=== PATIENT | female | born 1940 | race Caucasian/White ===

== ENCOUNTER 2017-08-28 13:45 | Outpatient (CLI) | payer OTHER ==
[~2017-08-28 13:45] MED LIST: CELEBREX100 MG PO; DIOVAN40 MG; FORTAMET1000 MG; JANUMET 50-1,01 EACH; LIPITOR20 MG; METFORMIN HCL500 MG PO; NORVASC5 MG PO; OSEL75CA PO; TOPROL XL25 MG; [UNRECOGNIZED DRUG - OTHER]
== END 2017-08-28 14:01 | disposition home or self-care (01) ==
LOC: MRI 13:45
DX: I61.1 Nontraumatic intracerebral hemorrhage in hemisphere, cortical (principal); I63.039 Cerebral infarction due to thrombosis of unspecified carotid artery
CPT/HCPCS: 70551

== ENCOUNTER 2017-11-21 18:04 | Emergency (ER) | payer OTHER ==
[~2017-11-21] VITALS: Ht 165.1 cm; Wt 73.9 kg
== END 2017-11-21 20:00 | disposition home or self-care (01) ==
LOC: ER 18:04
DX: S61.224A Laceration with foreign body of right ring finger without damage to nail, initial encounter (principal); W26.0XXA Contact with knife, initial encounter; Y93.89 Activity, other specified; Y92.89 Other specified places as the place of occurrence of the external cause; Y99.8 Other external cause status

== ENCOUNTER → 2017-12-03 | Emergency (ER) | payer OTHER ==
[~2017-12-03] VITALS: Ht 165.1 cm; Wt 73.5 kg
== END | disposition home or self-care (01) ==
LOC: ER 11:01
DX: M25.512 Pain in left shoulder (principal); Z48.02 Encounter for removal of sutures

== ENCOUNTER 2018-11-17 10:22 | Emergency (ER) | payer OTHER ==
[~2018-11-17] VITALS: Ht 165.1 cm; Wt 73.0 kg
== END 2018-11-17 15:40 | disposition home or self-care (01) ==
LOC: ER 10:22
DX: S01.82XA Laceration with foreign body of other part of head, initial encounter (principal); S01.02XA Laceration with foreign body of scalp, initial encounter; W45.8XXA Other foreign body or object entering through skin, initial encounter; Y93.89 Activity, other specified; Y92.018 Other place in single-family (private) house as the place of occurrence of the external cause; Y99.8 Other external cause status

== ENCOUNTER → 2019-01-03 | Outpatient (CLI) | payer OTHER | END | disposition home or self-care (01) | LOC: SONOGRAMA 13:53 | DX: E04.1 Nontoxic single thyroid nodule (principal) ==

== ENCOUNTER 2019-02-10 16:35 | Emergency (ER) | payer OTHER ==
[~2019-02-10] VITALS: Ht 165.1 cm; Wt 71.7 kg
== END 2019-02-11 00:27 | disposition home or self-care (01) ==
LOC: ER 16:35
DX: R59.0 Localized enlarged lymph nodes (principal)

== ENCOUNTER 2019-04-26 10:25 | Emergency (ER) | payer OTHER ==
[~2019-04-26] VITALS: Ht 165.1 cm; Wt 72.1 kg
[2019-04-26] MEDS ORDERED: NORVASC10 MG (11:08)
[2019-04-26] MEDS ORDERED: COZAAR50 MG (11:10)
[2019-04-26] MEDS ORDERED: VICTOZA 3-0.6 MG/0.1 (11:17)
== END 2019-04-26 21:00 | disposition home or self-care (01) ==
LOC: ER 10:25
DX: R10.31 Right lower quadrant pain (principal); M54.5 Low back pain; M54.6 Pain in thoracic spine

== ENCOUNTER 2021-01-09 11:43 | Outpatient (CLI) | payer OTHER ==
[~2021-01-09 11:43] MED LIST changes: +COZAAR50 MG; +NORVASC10 MG; +VICTOZA 3-0.6 MG/0.1
== END 2021-01-09 12:02 | disposition home or self-care (01) ==
LOC: RAD 11:43
PROVIDERS: ATTEND Obstetrics & Gynecology Gynecology
DX: M25.541 Pain in joints of right hand (principal); M54.5 Low back pain
CPT/HCPCS: 72148

== ENCOUNTER → 2021-01-14 09:57 | Outpatient (CLI) | payer OTHER | END | disposition home or self-care (01) | LOC: LAB 09:57 | PROVIDERS: ATTEND Radiology Diagnostic Radiology | DX: R10.32 Left lower quadrant pain (principal); E11.21 Type 2 diabetes mellitus with diabetic nephropathy; E55.9 Vitamin D deficiency, unspecified; K92.1 Melena; Z51.81 Encounter for therapeutic drug level monitoring ==

== ENCOUNTER → 2021-01-14 | Outpatient (CLI) | payer OTHER | END | disposition home or self-care (01) | LOC: TOM 10:54 | PROVIDERS: ATTEND Internal Medicine Hepatology | DX: R10.32 Left lower quadrant pain (principal) | CPT/HCPCS: 74177; Q9965 ==

== ENCOUNTER 2022-09-22 14:17 | Outpatient (CLI) | payer OTHER | END 2022-09-22 14:23 | disposition home or self-care (01) | LOC: SONOGRAMA 14:17 | PROVIDERS: ATTEND Family Medicine | DX: N28.1 Cyst of kidney, acquired (principal); R93.5 Abnormal findings on diagnostic imaging of other abdominal regions, including retroperitoneum ==

== ENCOUNTER 2022-10-28 08:04 | Outpatient (CLI) | payer OTHER | END 2022-10-28 08:13 | disposition home or self-care (01) | LOC: LAB 08:04 | PROVIDERS: ATTEND Internal Medicine | DX: N13.30 Unspecified hydronephrosis (principal); N28.1 Cyst of kidney, acquired; R93.5 Abnormal findings on diagnostic imaging of other abdominal regions, including retroperitoneum ==

== ENCOUNTER 2022-12-24 14:27 | Outpatient (CLI) | payer OTHER | END 2022-12-24 23:00 | disposition home or self-care (01) | LOC: LAB 14:27 | DX: N28.1 Cyst of kidney, acquired (principal) ==

== ENCOUNTER 2023-01-01 08:36 | Outpatient (CLI) | payer OTHER | END 2023-01-01 08:50 | disposition home or self-care (01) | LOC: TOM 08:36 | PROVIDERS: ATTEND Family Medicine | DX: N28.1 Cyst of kidney, acquired (principal); R93.5 Abnormal findings on diagnostic imaging of other abdominal regions, including retroperitoneum; E03.9 Hypothyroidism, unspecified ==

== ENCOUNTER 2023-01-20 15:04 | Outpatient (CLI) | payer OTHER | END 2023-01-20 15:14 | disposition home or self-care (01) | LOC: RAD 15:04 | PROVIDERS: ATTEND Internal Medicine | DX: M79.671 Pain in right foot (principal) ==

== ENCOUNTER 2023-05-18 10:50 | Emergency (ER) | payer OTHER ==
[~2023-05-18] VITALS: Ht 167.6 cm; Wt 68.0 kg
[2023-05-18] MEDS ORDERED: XIGDUO XR 5 MG1 EAC1 PO (11:12)
[2023-05-18] MEDS ORDERED: ROSUVASTATIN CA40 MG PO (11:13)
[2023-05-18] MEDS ORDERED: GLIMEPIRIDE2 M1 PO (11:14)
[2023-05-18 11:41] LABS: HEMATOCRIT 37.9 % (36.0-45.00); HEMOGLOBIN 12.7 g/dL (12.0-15.00); MEAN CORPUSCULAR HEMOGLOBIN 28.9 pg (27.00-32.0); MEAN CORPUSCULAR HGB CONC 33.6 g/dl (32.0-36.0); PLATELET COUNT 157 K/uL (150-450); RED BLOOD COUNT 4.41 M/uL (4.00-6.00); RED CELL DISTRIBUTION WIDTH 14.5 % (11.5-14.5)
[2023-05-18] MEDS ORDERED: ZITHROMAX500 MG PO (14:13)
[2023-05-18] MEDS ORDERED: TUSNEL LIQUID178 ML PO (14:13)
== END 2023-05-18 14:19 | disposition left against medical advice (07) ==
LOC: ER 10:50
PROVIDERS: General Practice
DX: U07.1 COVID-19 (principal); B34.8 Other viral infections of unspecified site

== ENCOUNTER 2023-10-03 20:41 | Emergency (ER) | payer OTHER ==
[~2023-10-03] VITALS: Ht 167.6 cm; Wt 77.1 kg
[~2023-10-03 20:41] MED LIST changes: +GLIMEPIRIDE2 M1 PO; +ROSUVASTATIN CA40 MG PO; +TUSNEL LIQUID178 ML PO; +XIGDUO XR 5 MG1 EAC1 PO; +ZITHROMAX500 MG PO
[2023-10-03] MEDS ORDERED: KETOROLAC TROMETHAMINE 30 MG VIAL IM ONE (21:30)
== END 2023-10-03 22:55 | disposition home or self-care (01) ==
LOC: ER 20:42
DX: S42.391A Other fracture of shaft of right humerus, initial encounter for closed fracture (principal); W19.XXXA Unspecified fall, initial encounter; Y93.89 Activity, other specified; Y92.091 Bathroom in other non-institutional residence as the place of occurrence of the external cause; Y99.8 Other external cause status; Z88.0 Allergy status to penicillin; Z88.1 Allergy status to other antibiotic agents; Z88.6 Allergy status to analgesic agent; Z88.8 Allergy status to other drugs, medicaments and biological substances
CPT/HCPCS: 73030; 96372; 99283; J1885

== ENCOUNTER 2023-10-05 16:02 | Outpatient (CLI) | payer OTHER | END 2023-10-05 16:07 | disposition home or self-care (01) | LOC: TOM 16:02 | PROVIDERS: ATTEND Orthopaedic Surgery | DX: S42.251A Displaced fracture of greater tuberosity of right humerus, initial encounter for closed fracture (principal) ==

== ENCOUNTER 2024-02-04 15:19 | Outpatient (CLI) | payer OTHER | END 2024-02-04 15:28 | disposition home or self-care (01) | LOC: RAD 15:19 | PROVIDERS: ATTEND Orthopaedic Surgery | DX: S42.224D 2-part nondisplaced fracture of surgical neck of right humerus, subsequent encounter for fracture with routine healing (principal) ==

== ENCOUNTER 2024-02-05 09:53 | Outpatient (CLI) | payer OTHER | END 2024-02-05 10:00 | disposition home or self-care (01) | LOC: NUCLEAR 09:53 | PROVIDERS: ATTEND Orthopaedic Surgery | DX: M81.0 Age-related osteoporosis without current pathological fracture (principal) ==

== ENCOUNTER → 2024-07-05 | Emergency (ER) | payer OTHER ==
[~2024-07-05] VITALS: Ht 167.6 cm; Wt 67.6 kg
[~2024-07-05] MED LIST changes: +BUDESONIDE 0.5 MG/2 ML AMPUL.NEB IH ONE; +CETIRIZINE HCL 5 MG/5 ML ML PO ONE; +IPRATROPIUM BROMIDE 0.5 MG/2.5 ML AMPUL.NEB IH SCH; +LEVALBUTEROL HCL 1.25 MG/3 ML SOLUTION IH ONE; +MELOXICAM15 MG PO; +NORVASC5 MG
[2024-07-05 14:52] LABS: HEMATOCRIT 42.8 % (36.0-45.00); HEMOGLOBIN 14.3 g/dL (12.0-15.00); MEAN CELL VOLUME 89.2 fL (80.00-100.00); MEAN CORPUSCULAR HEMOGLOBIN 29.9 pg (27.00-32.0); MEAN CORPUSCULAR HGB CONC 33.5 g/dl (32.0-36.0); PLATELET COUNT 178 K/uL (150-450); RED CELL DISTRIBUTION WIDTH 13.5 % (11.5-14.5)
[2024-07-05 15:17] LABS: CALCIUM 9.4 mg/dL (8.5-10.1); CREATININE SERUM 1.04 mg/dL (0.55-1.02); GFR 50.24; POTASSIUM 4.67 mEq/L (3.5-5.1)
== END | disposition left against medical advice (07) ==
LOC: ER 11:05
PROVIDERS: General Practice
DX: R05.9 Cough, unspecified (principal); Z20.822 Contact with and (suspected) exposure to COVID-19; I10 Essential (primary) hypertension; E11.9 Type 2 diabetes mellitus without complications; Z79.84 Long term (current) use of oral hypoglycemic drugs; Z88.0 Allergy status to penicillin; Z88.1 Allergy status to other antibiotic agents; Z88.6 Allergy status to analgesic agent; Z88.8 Allergy status to other drugs, medicaments and biological substances

== ENCOUNTER 2024-07-06 23:17 | Emergency (ER) | payer OTHER ==
[~2024-07-06] VITALS: Ht 167.6 cm; Wt 68.0 kg
[~2024-07-06 23:17] MED LIST changes: -BUDESONIDE 0.5 MG/2 ML AMPUL.NEB IH ONE; -CETIRIZINE HCL 5 MG/5 ML ML PO ONE; -IPRATROPIUM BROMIDE 0.5 MG/2.5 ML AMPUL.NEB IH SCH; -LEVALBUTEROL HCL 1.25 MG/3 ML SOLUTION IH ONE; -MELOXICAM15 MG PO
[2024-07-07] MEDS ORDERED: KETOROLAC TROMETHAMINE 60 MG VIAL IM STA (03:36)
[2024-07-07] MEDS ORDERED: GUAIFENESIN 200 MG/10 ML BLIST.PACK PO STA (03:36)
[2024-07-07] MEDS ORDERED: MELOXICAM15 MG PO (04:14)
== END 2024-07-07 04:31 ==
LOC: ER 23:19
DX: R07.81 Pleurodynia (principal); E11.9 Type 2 diabetes mellitus without complications; Z79.84 Long term (current) use of oral hypoglycemic drugs; I10 Essential (primary) hypertension; Z88.0 Allergy status to penicillin; Z88.8 Allergy status to other drugs, medicaments and biological substances
CPT/HCPCS: 71046; 96372; 99283; J1885

== ENCOUNTER 2024-09-16 10:49 | Outpatient (CLI) | payer OTHER ==
[~2024-09-16 10:49] MED LIST changes: +MELOXICAM15 MG PO
== END 2024-09-16 10:57 | disposition home or self-care (01) ==
LOC: RAD 10:49
PROVIDERS: ATTEND Orthopaedic Surgery
DX: M25.562 Pain in left knee (principal); M17.12 Unilateral primary osteoarthritis, left knee; M79.641 Pain in right hand; M65.341 Trigger finger, right ring finger

== ENCOUNTER 2024-12-03 09:04 | Emergency (ER) | payer OTHER ==
[~2024-12-03] VITALS: Ht 167.6 cm; Wt 66.2 kg
[2024-12-03] MEDS ORDERED: TRIJARDY XR 121 EACH PO (10:40)
[2024-12-03 12:14] LABS: BASO % 0.2 % (0.1-1.2); EOS # 0.09 (0.04-0.54); EOS % 0.7 % (0.7-7.0); HEMATOCRIT 44.2 % (34.1-44.9); LYMPH # 0.94 (1.18-3.74); LYMPH % 7.4 % (19.3-53.1); MEAN CORPUSCULAR HEMOGLOBIN 29.9 pg (25.6-32.2); MONO # 0.89 (0.24-0.82); NEUT # 10.69 (1.56-6.13); NEUT % 84.4 % (34.0-71.1); PLATELET COUNT 219 K/uL (163-369); RED BLOOD COUNT 5.02 M/uL (3.93-5.22); RED CELL DISTRIBUTION WIDTH 13.8 % (11.6-14.4)
[2024-12-03 12:39] LABS: CALCIUM 9.2 mg/dL (8.5-10.1); CREATININE SERUM 1.1 mg/dL (0.55-1.02); GFR 47.09; POTASSIUM 3.98 mEq/L (3.5-5.1)
[2024-12-03 13:16] LABS: PH,URINE 5.5 (5.0-8.0); URINE APPEARANCE Clear; URINE BILIRRUBIN Negative (NEGATIVE); URINE BLOOD Trace; URINE COLOR Yellow; URINE KETONE Negative (NEGATIVE); URINE LEUKOCYTE Trace; URINE NITRATE Positive; URINE PROTEIN Negative (NEGATIVE); URINE UROBILINOGEN 0.2 E.U./dl
[2024-12-03 13:20] LABS: URINE EPITHELIAL CELLS 6.8 uL (0.0-38.8); URINE RBC 6.1 uL (0.0-20.8); URINE WBC 176.5 uL (0.0-23.2)
[2024-12-03 13:28] LABS: URINE BACTERIA > 9821.5 uL (0.0-1933); URINE CAST 0.14 uL (0.0-1.40); URINE GLUCOSE >=1000 MG/DL (NEGATIVE)
== END 2024-12-03 14:01 | disposition home or self-care (01) ==
LOC: ER 09:18
PROVIDERS: General Practice
DX: J04.0 Acute laryngitis (principal); N39.0 Urinary tract infection, site not specified; E11.9 Type 2 diabetes mellitus without complications; Z79.84 Long term (current) use of oral hypoglycemic drugs; Z88.0 Allergy status to penicillin; Z88.1 Allergy status to other antibiotic agents; Z88.6 Allergy status to analgesic agent; Z88.8 Allergy status to other drugs, medicaments and biological substances

== ENCOUNTER → 2024-12-06 | Emergency (ER) | payer OTHER ==
[~2024-12-06] VITALS: Ht 167.6 cm; Wt 67.1 kg
[~2024-12-06] MED LIST changes: +TRIJARDY XR 121 EACH PO
[2024-12-06 11:17] LABS: BASO % 0.5 % (0.1-1.2); EOS # 0.26 (0.04-0.54); EOS % 3.3 % (0.7-7.0); HEMATOCRIT 40.7 % (34.1-44.9); HEMOGLOBIN 13.5 g/dL (11.2-15.7); LYMPH % 12.8 % (19.3-53.1); MEAN CORPUSCULAR HEMOGLOBIN 29.3 pg (25.6-32.2); MONO # 0.71 (0.24-0.82); MONO % 9.1 % (4.7-12.5); NEUT % 73.3 % (34.0-71.1); PLATELET COUNT 240 K/uL (163-369); RED BLOOD COUNT 4.61 M/uL (3.93-5.22); RED CELL DISTRIBUTION WIDTH 13.3 % (11.6-14.4)
[2024-12-06 11:31] LABS: CALCIUM 9.3 mg/dL (8.5-10.1); CREATININE SERUM 1.02 mg/dL (0.55-1.02); GFR 51.38; POTASSIUM 4.47 mEq/L (3.5-5.1)
[2024-12-06 12:13] LABS: COVID-19 AG NEGATIVE (NEGATIVE)
[2024-12-06 12:17] LABS: INFLUENZA A AG NEGATIVE (NEGATIVE)
== END | disposition left against medical advice (07) ==
LOC: ER 09:19
PROVIDERS: General Practice
DX: J00 Acute nasopharyngitis [common cold] (principal); Z88.0 Allergy status to penicillin; Z88.8 Allergy status to other drugs, medicaments and biological substances; Z20.822 Contact with and (suspected) exposure to COVID-19

== ENCOUNTER 2024-12-08 11:17 | Emergency (ER) | payer OTHER ==
[~2024-12-08] VITALS: Ht 167.6 cm; Wt 67.1 kg
[2024-12-08] MEDS ORDERED: GUAIFENESIN 200 MG/10 ML BLIST.PACK PO ONE ×2 (12:15→12:40)
[2024-12-08] MEDS ORDERED: IPRATROPIUM BROMIDE 0.5 MG/2.5 ML AMPUL.NEB IH SCH (12:15)
[2024-12-08 13:11] LABS: BASO % 0.7 % (0.1-1.2); EOS # 0.24 (0.04-0.54); EOS % 3.3 % (0.7-7.0); HEMATOCRIT 41.2 % (34.1-44.9); HEMOGLOBIN 13.5 g/dL (11.2-15.7); LYMPH % 15.3 % (19.3-53.1); MEAN CORPUSCULAR HEMOGLOBIN 29.1 pg (25.6-32.2); MONO # 0.58 (0.24-0.82); MONO % 8.1 % (4.7-12.5); NEUT # 5.14 (1.56-6.13); NEUT % 71.3 % (34.0-71.1); PLATELET COUNT 249 K/uL (163-369); RED BLOOD COUNT 4.64 M/uL (3.93-5.22); RED CELL DISTRIBUTION WIDTH 12.8 % (11.6-14.4)
== END 2024-12-08 15:22 | disposition home or self-care (01) ==
LOC: ER 11:17
PROVIDERS: General Practice
DX: R05.8 Other specified cough (principal); Z88.0 Allergy status to penicillin; Z88.1 Allergy status to other antibiotic agents; I10 Essential (primary) hypertension; E11.9 Type 2 diabetes mellitus without complications

== ENCOUNTER 2024-12-29 14:57 | Outpatient (CLI) | payer OTHER | END 2024-12-29 14:59 | disposition home or self-care (01) | LOC: SONOGRAMA 14:57 | DX: N39.42 Incontinence without sensory awareness (principal) ==

== ENCOUNTER 2025-01-06 10:35 | Emergency (ER) | payer OTHER ==
[~2025-01-06] VITALS: Ht 167.6 cm; Wt 68.0 kg
[2025-01-06] MEDS ORDERED: ROSUVASTATIN CAL5 MG PO (11:09)
[2025-01-06 12:23] LABS: BASO % 0.8 % (0.1-1.2); EOS % 1.7 % (0.7-7.0); LYMPH # 1.22 (1.18-3.74); LYMPH % 20.3 % (19.3-53.1); MEAN CORPUSCULAR HEMOGLOBIN 29.5 pg (25.6-32.2); MONO # 0.63 (0.24-0.82); MONO % 10.5 % (4.7-12.5); NEUT # 3.96 (1.56-6.13); NEUT % 65.9 % (34.0-71.1); PLATELET COUNT 244 K/uL (163-369); RED BLOOD COUNT 4.74 M/uL (3.93-5.22); RED CELL DISTRIBUTION WIDTH 13.4 % (11.6-14.4)
[2025-01-06 12:28] LABS: ALBUMIN 3.7 gm/dL (3.4-5.0); BILIRUBIN TOTAL 0.36 mg/dL (0.3-1.2); CREATININE SERUM 0.96 mg/dL (0.55-1.02); GFR 55.11; GLOBULINA 4.3 G/DL (2.4-3.5); POTASSIUM 4.09 mEq/L (3.5-5.1)
== END 2025-01-06 16:47 | disposition home or self-care (01) ==
LOC: ER 10:35
PROVIDERS: General Practice
DX: M79.604 Pain in right leg (principal); Z88.0 Allergy status to penicillin; Z88.1 Allergy status to other antibiotic agents; Z88.8 Allergy status to other drugs, medicaments and biological substances; E11.65 Type 2 diabetes mellitus with hyperglycemia; Z79.84 Long term (current) use of oral hypoglycemic drugs

== ENCOUNTER 2025-01-22 10:38 | Emergency (ER) | payer OTHER ==
[~2025-01-22] VITALS: Ht 167.6 cm; Wt 68.0 kg
[~2025-01-22 10:38] MED LIST changes: +COZAAR50 MG PO; +ELIQUIS5 MG PO; +GLIMEPIRIDE3 MG PO; +ROSUVASTATIN CA10 MG PO; +ROSUVASTATIN CAL5 MG PO; +TRIJARDY XR 101 EACH PO
[2025-01-22] MEDS ORDERED: KETOROLAC TROMETHAMINE 30 MG VIAL IM ONE (11:15)
== END 2025-01-22 13:43 | disposition home or self-care (01) ==
LOC: ER 10:38
DX: M12.522 Traumatic arthropathy, left elbow (principal); T14.90XS Injury, unspecified, sequela; W18.39XS Other fall on same level, sequela; M12.532 Traumatic arthropathy, left wrist; W18.39XA Other fall on same level, initial encounter; Y93.89 Activity, other specified; Y92.89 Other specified places as the place of occurrence of the external cause; Z88.0 Allergy status to penicillin; Z88.2 Allergy status to sulfonamides
CPT/HCPCS: 72040; 73030; 73070; 73110; 96372; 99283; J1885

== ENCOUNTER 2025-02-20 21:04 | Emergency (ER) | payer OTHER ==
[~2025-02-20] VITALS: Ht 167.6 cm; Wt 68.5 kg
[2025-02-20] MEDS ORDERED: FAMOTIDINE/PF 20 MG in 0.9 % SODIUM CHLORIDE 8 ML IV PUSH STA (21:40)
[2025-02-20] MEDS ORDERED: ONDANSETRON HCL 2 MG/ML VIAL IV ONE (21:45)
[2025-02-20] MEDS ORDERED: 0.9 % SODIUM CHLORIDE 1,000 ML IV SCH (21:45)
[2025-02-20 22:04] LABS: BASO % 0.2 % (0.1-1.2); EOS # 0.00 (0.04-0.54); EOS % 0.0 % (0.7-7.0); LYMPH # 0.18 (1.18-3.74); LYMPH % 1.2 % (19.3-53.1); MEAN PLATELET VOLUME 10.50 fl (9.4-12.4); MONO # 0.35 (0.24-0.82); MONO % 2.4 % (4.7-12.5); NEUT # 14.21 (1.56-6.13); NEUT % 95.5 % (34.0-71.1); RED CELL DISTRIBUTION WIDTH 12.9 % (11.6-14.4)
[2025-02-20 22:21] LABS: ALT/SGPT 23.0 U/L (12-78); AST/SGOT 18.0 U/L (15-37); BILIRUBIN TOTAL 0.59 mg/dL (0.3-1.2); BUN CREA RATIO 20.0 (7.0-25.0); CREATININE SERUM 1.09 mg/dL (0.55-1.02); GFR 47.59; GLOBULINA 3.7 G/DL (2.4-3.5); LDH 206.0 U/L (84-246); OSMOLALITY SERUM 292.0 MOSM/KG (275-295); PHOSPHOKINASE CREATININE 55.0 U/L (26-192)
[2025-02-20 22:25] LABS: GLUCOSE FASTING 203.0 mg/dL (65-100)
[2025-02-20 23:34] LABS: COVID-19 AG NEGATIVE (NEGATIVE)
[2025-02-21 00:02] LABS: URINE APPEARANCE Clear; URINE BILIRRUBIN Negative (NEGATIVE); URINE BLOOD Negative; URINE COLOR Yellow; URINE KETONE 15 (NEGATIVE); URINE LEUKOCYTE Trace; URINE NITRATE Negative; URINE PROTEIN Negative (NEGATIVE); URINE UROBILINOGEN 0.2 E.U./dl
[2025-02-21 00:06] LABS: URINE BACTERIA 4802.1 uL (0.0-1933); URINE EPITHELIAL CELLS 17.2 uL (0.0-38.8); URINE RBC 6.7 uL (0.0-20.8); URINE WBC 84.9 uL (0.0-23.2)
[2025-02-21 00:24] LABS: URINE CAST 0.00 uL (0.0-1.40); URINE GLUCOSE >=1000 MG/DL (NEGATIVE)
== END 2025-02-21 03:03 | disposition home or self-care (01) ==
LOC: ER 21:04
PROVIDERS: General Practice
DX: R53.1 Weakness (principal); R53.81 Other malaise; Z20.822 Contact with and (suspected) exposure to COVID-19; E11.9 Type 2 diabetes mellitus without complications; Z79.84 Long term (current) use of oral hypoglycemic drugs; I10 Essential (primary) hypertension; Z88.0 Allergy status to penicillin; Z88.8 Allergy status to other drugs, medicaments and biological substances
CPT/HCPCS: 36415; 70450; 93005; 96365; 96366; 99284; J2405; J3490

== ENCOUNTER 2025-04-12 09:50 | Emergency (ER) | payer OTHER ==
[~2025-04-12] VITALS: Ht 167.6 cm; Wt 68.0 kg
[2025-04-12 10:21] VITALS: BP 136/66; O2SAT 96
[2025-04-12] MEDS ORDERED: KETOROLAC TROMETHAMINE 30 MG VIAL IM STA (11:41)
[2025-04-12] MEDS ORDERED: 0.9 % SODIUM CHLORIDE 1,000 ML IV STA (11:43)
[2025-04-12 12:15] LABS: BASO % 0.6 % (0.1-1.2); EOS # 0.24 (0.04-0.54); EOS % 3.1 % (0.7-7.0); LYMPH # 1.30 (1.18-3.74); LYMPH % 16.7 % (19.3-53.1); MEAN PLATELET VOLUME 11.00 fl (9.4-12.4); MONO # 0.62 (0.24-0.82); MONO % 8.0 % (4.7-12.5); NEUT # 5.53 (1.56-6.13); NEUT % 71.1 % (34.0-71.1); RED CELL DISTRIBUTION WIDTH 13.0 % (11.6-14.4)
[2025-04-12 12:38] LABS: COVID-19 AG NEGATIVE (NEGATIVE)
[2025-04-12 12:53] LABS: ERYTHROCYTE SEDIMENTATION RATE 36 mm/hr (0-30)
[2025-04-12 12:58] LABS: ALT/SGPT 23.0 U/L (12-78); AST/SGOT 20.0 U/L (15-37); BILIRUBIN TOTAL 0.53 mg/dL (0.3-1.2); BUN CREA RATIO 21.0 (7.0-25.0); CREATININE SERUM 1.0 mg/dL (0.55-1.02); GFR 52.57; GLOBULINA 4.0 G/DL (2.4-3.5); GLUCOSE FASTING 173.0 mg/dL (65-100); OSMOLALITY SERUM 287.0 MOSM/KG (275-295)
[2025-04-12 13:00] LABS: INR 0.98
== END 2025-04-12 22:26 | disposition home or self-care (01) ==
LOC: ER 09:50
PROVIDERS: General Practice
DX: R42 Dizziness and giddiness (principal); Z20.822 Contact with and (suspected) exposure to COVID-19; M25.532 Pain in left wrist; M25.512 Pain in left shoulder; E11.9 Type 2 diabetes mellitus without complications; Z79.84 Long term (current) use of oral hypoglycemic drugs; I10 Essential (primary) hypertension; Z88.0 Allergy status to penicillin; Z88.8 Allergy status to other drugs, medicaments and biological substances
CPT/HCPCS: 36415; 70450; 73030; 73110; 73130; 93005; 96365; 96372; 99284; J1885; J3490

== ENCOUNTER 2025-06-05 15:54 | Outpatient (CLI) | payer OTHER | END 2025-06-05 15:58 | disposition home or self-care (01) | LOC: RAD 15:54 | PROVIDERS: ATTEND Anesthesiology Pain Medicine | DX: M51.369 Other intervertebral disc degeneration, lumbar region without mention of lumbar back pain or lower extremity pain (principal) ==